=== PATIENT | female | born 1990 | race Two or more races ===

== ENCOUNTER 2025-04-25 06:21 | Observation (INO) | payer MEDICAID, SELFPAY ==
[2025-04-25] VITALS (160 sets, daily range): BP systolic 116–136; BP diastolic 58–90; PULSE 90–122; TEMP 36.7–36.8; O2SAT 84–99; BMI 34.2
--- NOTE | 2025-04-25 06:45 | XR_ITS ---
Examination: Complete OB ultrasound greater than 14 weeks Date and time of exam: April 25, 2025 0729 hours INDICATIONS: Vaginal bleeding beginning today Findings: Viable intrauterine single fetus with single amniotic sac presentation transverse head maternal left Cardiac motion 129 BPM Placenta posterior grade 2 venous lakes no abruption Umbilical cord insertion seen Amniotic fluid index 14.2 cm Cervix 4.1 cm closed Ovaries obscured by bowel gas. Composite estimated gestational age based on BPD, head circumference, abdominal circumference, femur length is 28 weeks 5 days Estimated weight 124.5 g. Survey of intracranial anatomy, spinal anatomy, abdominal anatomy, four-chamber heart performed with no abnormalities identified. Impression: Viable intrauterine gestation transverse presentation Placenta posterior, 1 cm from the cervix No placental abruption.
[2025-04-25] MEDS: BETAMET ACET/BETAMET NA PH (Celestone) 6 MG/ML VIAL 12 MG IM (07:06)
[2025-04-25 07:11] LABS: Basophils % (Auto) 0 % (0-2.5); Eosinophils # (Auto) 0.1 Thou/mm3 (0.0-0.5); Eosinophils % (Auto) 1 % (0-10); Hemoglobin 10.4 g/dL (12.0-16.0); Immature Granulocytes % (Auto) 2 % (0-0); Immature Granulocytes Auto 0.18 Thou/mm3 (0.00-0.00); Lymphocytes # (Auto) 2.2 Thou/mm3 (1.0-4.8); Lymphocytes % (Auto) 19 % (10-50); Mean Corpuscular HGB Conc 33.5 g/dl (31.0-37.0); Mean Corpuscular Hemoglobin 26.7 pg (25.0-35.0); Mean Corpuscular Volume 80 fL (80-100); Monocytes # (Auto) 0.8 Thou/mm3 (0.0-0.8); Monocytes % (Auto) 7 % (0-12); Neutrophils # (Auto) 7.9 Thou/mm3 (1.8-7.7); Neutrophils % (Auto) 71 % (37-80); Nucleated Red Blood Cell # 0.02 Thou/mm3 (0.00-0.00); Nucleated Red Blood Cell % 0 /100 WBC (0); Platelet Count 246 Thou/mm3 (140-440); RDW Standard Deviation 42.3 fL (36.4-46.3); White Blood Count 11.2 Thou/mm3 (3.6-11.0)
[2025-04-25 07:22] LABS: Partial Thromboplastin Time 28.1 Seconds (22.0-36.0); Prothrombin Time 10.6 Seconds (9.0-12.2)
--- NOTE | 2025-04-25 07:48 | ESPR_ITS ---
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 The bleeding was significant enough to run down her legs. She notes no ctx, no loss of fluid. No abdominal pain. Normal movement. Current : She has had regular OB care with her OBGYN in [place]. She has had spotting intermittently throughout . She was admitted in [place] approx 1 month ago for severe abdominal pain. Was diagnosed with UTI and trichomonas, she and partner treated. Hasn't had a test of cure for trichomonas yet. Previous pregnancies: History of sections x3 First delivery complicated by significant hemorrhage requiring blood transfusion. She was told at time of last that she should consider not getting again since she had considerable scarring ROS negative other than what was described above. Vitals wnl, afebrile General: well developed, well nourished, no acute distress, conversant Cardiac: normal heart rate Lungs: breathing without distress Abdomen: soft, gravid, non-tender, no rebound or guarding Extremities: no edema of BLE SSE: scant blood in vaginal vault, no active bleeding, cervix visually closed/thick/high. 2-3cm non-friable appearing cervical polyp SCE: cl/th/h FHRT reassuring for gestational age with +accels, no decels, mod hussain Trego: no ctx pattern, occasional irritability that resolves Labs: Hgb 10.4 Plt 246 PT 10.6 INR 1 PTT 28.1 fibrinogen 454 Radiology: ultrasound: Examination: Complete OB ultrasound greater than 14 weeks Date and time of exam: April 25, 2025 0729 hours INDICATIONS: Vaginal bleeding beginning today Findings: Viable intrauterine single fetus with single amniotic sac presentation transverse head maternal left Cardiac motion 129 BPM Placenta posterior grade 2 venous lakes no abruption Umbilical cord insertion seen Amniotic fluid index 14.2 cm Cervix 4.1 cm closed Ovaries obscured by bowel gas. Composite estimated gestational age based on BPD, head circumference, abdominal circumference, femur length is 28 weeks 5 days Estimated weight 124.5 g. Survey of intracranial anatomy, spinal anatomy, abdominal anatomy, four-chamber heart performed with no abnormalities identified. Impression: Viable intrauterine gestation transverse presentation Placenta posterior, 1 cm from the cervix No placental abruption. Assessment: Kisha is a 34yo with SIUP at 28+wk with painless vaginal bleeding episode, no evidence of placental abruption or pre-term labor. Cervix visually closed thick high and SCE cl/th/high. Cervical length 4.1cm. There is a non-friable appearing cervical polyp, 2-3cm in size. No ctx pattern. Reassuring status. Vitals wnl, benign exam. Ultrasound shows posterior low lying placenta (1cm from cervix) and venous lakes. I spoke with Radiologist who stated venous lakes are very small, largest is 1.2cm and no concern for abruption. Observed for 12 hours on L&D with complete cessation of bleeding and no recurrence. Plan: -Return to L&D tomorrow 04/26 for 2nd dose of betamethasone and NST -Vaginitis swab obtained for trichomonas test of cure, pending -Follow up with OBGYN within 1 week as scheduled -Will need repeat ultrasound to follow low lying placenta which we discussed -Discussed complete pelvic rest- no intercourse, no orgasm until cleared by follow up ultrasound. -Note given for 1 week off of work, discussed no vigorous activity -Return precautions: return of vaginal bleeding, loss of fluid, contractions, abdominal pain, decreased movement. Morena Latham MD
[2025-04-25] MEDS: RINGERS LACTATED 1000 ML 1,000 ML 999 ML IV (09:03)
[2025-04-25 09:07] LABS: Fibrinogen 454 mg/dL (175-375)
[2025-04-25] MEDS: ACETAMINOPHEN 500 MG TABLET 1000 MG PO (10:15)
[2025-04-26 16:29] LABS: BVAG Candida Positive (Negative); Bacterial Vaginosis Markers Negative (Negative); Candida glabrata Negative (Negative); Candida krusei PCR Negative (Negative); Trichomonas Negative (Negative)
== END 2025-04-25 19:00 | disposition home or self-care (01) ==
PROVIDERS: Admitting Provider Obstetrics & Gynecology; Visit Provider Obstetrics & Gynecology
DX: O46.93 Antepartum hemorrhage, unspecified, third trimester (principal); Z3A.28 28 weeks gestation of pregnancy; O34.43 Maternal care for other abnormalities of cervix, third trimester; N84.1 Polyp of cervix uteri
CPT/HCPCS: 36415; 59025; 59899; 76805; 81514; 85025; 85384; 85610; 85730; 86850; 86900; 86901; 96372; J0702; J7120; A9270

== ENCOUNTER 2025-04-26 06:30 | Outpatient (CLI) | payer MEDICAID, SELFPAY ==
[2025-04-26 07:05] VITALS: PULSE 84; O2SAT 98
[2025-04-26 07:08] VITALS: BMI 31.1
[2025-04-26 07:09] VITALS: BP 110/59; PULSE 83; RESP 18; RESP 98; TEMP 37.3
[2025-04-26 07:10] VITALS: PULSE 90; O2SAT 97
[2025-04-26] MEDS: BETAMET ACET/BETAMET NA PH (Celestone) 6 MG/ML VIAL 12 MG IM (07:10)
[2025-04-26 07:15] VITALS: PULSE 98; O2SAT 98
[2025-04-26 07:20] VITALS: PULSE 92; O2SAT 97
== END 2025-04-26 07:24 | disposition home or self-care (01) ==
LOC: S4S1 06:42 → S4SX 07:03
PROVIDERS: Referring Provider Obstetrics & Gynecology; Visit Provider Obstetrics & Gynecology
DX: Z34.83 Encounter for supervision of other normal pregnancy, third trimester (principal); Z36.9 Encounter for antenatal screening, unspecified; Z3A.28 28 weeks gestation of pregnancy
CPT/HCPCS: 59025; 96372; J0702

== ENCOUNTER 2025-08-24 13:59 | Emergency (ER) | payer MEDICAID, SELFPAY ==
[2025-08-24 14:00] VITALS: BMI 32.4
[2025-08-24 14:28] VITALS: BP 118/76; PULSE 80; RESP 18; TEMP 36.6; O2SAT 99
--- NOTE | 2025-08-24 14:34 | XR_ITS ---
Examination: CT abdomen with intravenous contrast CT pelvis with intravenous contrast 2-D coronal reconstructions 2-D sagittal reconstructions Date and time of exam: August 24, 2025, 1827 hours, comparison May 11, 2022 INDICATIONS: Umbilical pain area 3 days.. CTDI: vol (mGy) 7.99 DLP: (mGycm) 468 Technique: Multiple axial sections of the abdomen and pelvis have been obtained. 64 slice high-resolution scanner used. 3 mm axial sections have been obtained, post intravenous injection of 60 cc [id number]-370 2-D sagittal, coronal reconstructions obtained. Low dose protocols were performed. One or more of the following dose reduction techniques were used; automated exposure control, adjustment of the mA and/or KV according to patient size, use of iterative reconstruction technique. Findings: No focal liver or splenic lesions Contracted gallbladder No pancreatic or adrenal mass No renal or ureteral calculi, no hydronephrosis Aorta normal size 12 mm fat-containing umbilical hernia Absent appendix No bowel obstruction Anteverted uterus Cystic septated right adnexal mass, axial image 173, measuring 5.4 cm Inflammatory change anterior to the urinary bladder which extends through the pelvic wall with pelvic wall abscess, axial image 195, sagittal image 92, measuring 3.3 x 1.3 x 4.3 cm IMPRESSION: Recommend pelvic sonography to assess septated right adnexal mass Inflammatory infectious change anterior to the urinary bladder which extends through the anterior pelvic wall with pelvic wall abscess 3.3 x 1.3 x 4.3 cm
--- NOTE | 2025-08-24 14:35 | PD.EDRME ---
Rapid Medical Screening Exam [facility] Arrival date/time: 08/24/25 13:59 34-year-old female with no known medical history presents to the emergency room with a chief complaint of drainage and tenderness to her mid pelvic area. Patient recently had a done 2 months ago. Patient states that after her she developed an abscess to the same area which needed to be drained I have greeted and performed a focused initial assessment of this patient. A comprehensive ED assessment and evaluation of the patient, analysis of all test results, and completion of the medical decision making process will be conducted by additional ED providers. Chief Complaint: Wound Recheck / Suture Removal Time Seen by Provider: 08/24/25 14:24 Vital signs: Vital Signs Temperature 97.8 F 08/24/25 14:28 Pulse Rate 80 08/24/25 14:28 Respiratory Rate 18 08/24/25 14:28 Blood Pressure 118/76 08/24/25 14:28 Pulse Oximetry (%) 99 08/24/25 14:28 Oxygen Delivery Method Room Air 08/24/25 14:28 Vital signs reviewed by provider: Yes Exam: 7 out of 10 mid abdominal pain, white foul-smelling drainage from the incision site Strong and regular rhythm clear bilateral lung sounds Clinical Impression: Cellulitis/abscess/incision dehiscence
[2025-08-24 15:20] LABS: Basophils # (Auto) 0.0 Thou/mm3 (0.0-0.2); Basophils % (Auto) 1 % (0-2.5); Eosinophils # (Auto) 0.2 Thou/mm3 (0.0-0.5); Eosinophils % (Auto) 2 % (0-10); Hematocrit 37.9 % (36.0-46.0); Hemoglobin 12.0 g/dL (12.0-16.0); Immature Granulocytes Auto 0.02 Thou/mm3 (0.00-0.00); Lymphocytes # (Auto) 1.8 Thou/mm3 (1.0-4.8); Lymphocytes % (Auto) 24 % (10-50); Mean Corpuscular HGB Conc 31.7 g/dl (31.0-37.0); Mean Corpuscular Hemoglobin 26.1 pg (25.0-35.0); Mean Corpuscular Volume 82 fL (80-100); Monocytes # (Auto) 0.5 Thou/mm3 (0.0-0.8); Monocytes % (Auto) 6 % (0-12); Neutrophils # (Auto) 4.8 Thou/mm3 (1.8-7.7); Neutrophils % (Auto) 66 % (37-80); Nucleated Red Blood Cell # 0.00 Thou/mm3 (0.00-0.00); Nucleated Red Blood Cell % 0 /100 WBC (0); Platelet Count 261 Thou/mm3 (140-440); RDW Standard Deviation 62.9 fL (36.4-46.3); Red Blood Count 4.60 Miln/mm3 (4.00-5.20); White Blood Count 7.2 Thou/mm3 (3.6-11.0)
[2025-08-24 15:47] LABS: Alanine Aminotransferase 11 U/L (10-49); Albumin, Serum 4.6 gm/dL (3.5-5.0); Albumin/Globulin Ratio 1.9 (1.2-2.2); Alkaline Phosphatase 88 U/L (46-116); Anion Gap 8 (7-16); Aspartate Amino Transferase 14 U/L (0-34); BUN/Creatinine Ratio 22 Ratio (12-20); Bilirubin,Total 0.4 mg/dL (0.3-1.2); Blood Urea Nitrogen 13 mg/dL (9-23); Calcium 9.2 mg/dL (8.3-10.6); Calcium (Corrected) 9.2 mg/dL (8.5-10.1); Carbon Dioxide 28.8 mMol/L (20.0-31.0); Chloride 105 mMol/L (98-107); Creatinine (Component) 0.6 mg/dL (0.6-1.3); Estimated Creatinine Clearance 118.6 mL/min (>60); Globulin 2.4 gm/dL (2.3-3.5); Glucose 115 mg/dL (74-106); Lipase 50 U/L (12-53); Osmolality,Calculated 284 (275-295); Potassium 4.4 mMol/L (3.4-5.1); Sodium 142 mMol/L (136-145); Total Protein 7.0 gm/dL (5.7-8.2); eGFR > 60 See Note
[2025-08-24 15:53] LABS: Collection Type, Urine Clean Catch
[2025-08-24 16:04] LABS: Bilirubin,Urine Negative (Negative); Blood,Urine 3+ (Negative); Budding Yeast,Urine Present; Color,Urine Yellow (Lt Yel-Yel); Glucose, Urine Negative (Negative); Ketones,Urine Negative (Negative); Leukocyte Esterase,Urine Positive (Negative); Nitrite,Urine Negative (Negative); PH,Urine 6.0 (5.0-7.0); Protein,Urine 1+ (Neg - Trace); RBC,Urine 136 /hpf (0-3); Specific Gravity,Urine 1.032 (1.001-1.035); Squamous Epithelial Cell,Urine 105 /hpf (0-5); Urobilinogen,Urine Negative mg/dL (0.0-1.0); WBC,Urine 186 /hpf (0-5)
[2025-08-24 16:07] LABS: Clarity,Urine Cloudy (Clear/Hazy)
[2025-08-24 17:09] LABS: HCG Qualitative,Urine Negative
--- NOTE | 2025-08-24 20:14 | EDNOTE_ITS ---
ED Wound/Laceration-RME/HPI General Chief Complaint: Wound Recheck / Suture Removal Stated Complaint: SWOLLEN & LEAKY INCISION 2 MONTHS Time Seen by Provider: 08/24/25 14:24 Source: patient Arrival date/time: 08/24/25 13:59 Mode of arrival: ambulatory Limitations: no limitations RME / HPI RME / HPI narrative: DR. Veronica MTZ HPI: 34-year-old female presents emergency department after tenderness and drainage at her site for the last few days. Patient is status post 2 months ago July at [facility]. This is #4. The patient then had an abdominal abscess 3 weeks status post her . This required drainage and hospitalization. Patient states at that time the abscess was 15 cm and on discharge it was 5 cm.) The drainage is foul-smelling and yellow in color. Patient denies fevers, back pain, palpitations, or syncope. No cough, runny nose, and otherwise having no vaginal discharge. RME 08/24/25 13:59 34-year-old female with no known medical history presents to the emergency room with a chief complaint of drainage and tenderness to her mid pelvic area. Patient recently had a done 2 months ago. Patient states that after her she developed an abscess to the same area which needed to be drained I have greeted and performed a focused initial assessment of this patient. A comprehensive ED assessment and evaluation of the patient, analysis of all test results, and completion of the medical decision making process will be conducted by additional ED providers. Exam: 7 out of 10 mid abdominal pain, white foul-smelling drainage from the incision site Strong and regular rhythm clear bilateral lung sounds Impression: Cellulitis/abscess/incision dehiscence Related Data Previous Rx's ?Medication ?Instructions ?Recorded levofloxacin 750 mg tablet 750 mg PO QDAY #7 tabs 05/01 01/20 doxycycline hyclate 100 mg tablet 100 mg PO BID #20 ta bs 08/24/25 Allergies Allergy/AdvReac Type Severity Reaction Status Date / Time morphine Allergy Severe Vomiting Verified 08/24/25 14:04 diphenhydramine AdvReac Severe Hives Verified 08/24/25 14:04 Review of Systems Review of Systems Systems Reviewed: All systems reviewed, normal except as documented Constitutional Constitutional: Reports system reviewed and no additional complaints, except as documented and Denies fever(s) Eyes Eyes: Reports system reviewed and no additional complaints, except as documented ENT Ears, Nose, Mouth, and Throat: Reports system reviewed and no additional complaints, except as documented Cardiovascular Cardiovascular: Reports system reviewed and no additional complaints, except as documented, Denies chest pain and Reports dyspnea Respiratory Respiratory: Reports system reviewed and no additional complaints, except as documented, Reports dyspnea and Denies wheezing Musculoskeletal Musculoskeletal: Reports system reviewed and no additional complaints, except as documented, Denies abnormal gait and Denies arthralgias Integumentary/Breasts Skin/Breast: Reports system reviewed and no additional complaints, except as documented and Denies rash Neurologic Neurologic: Reports system reviewed and no additional complaints, except as documented and Denies abnormal gait Psychiatric Psychiatric: Reports system reviewed and no additional complaints, except as documented Allergic/Immunologic Allergic/Immunologic: Denies wheezing ED Exam General Limitations: Present no limitations General appearance: Present alert and in no apparent distress Head Head exam: Present atraumatic Eye Eye exam: Present normal appearance, PERRL and EOMI ENT ENT exam: Present normal exam, normal oropharynx and mucous membranes moist Neck Neck exam: Present normal inspection, full ROM and trachea midline Chest Chest inspection: Present normal inspection and symmetric chest wall rise Respiratory Respiratory exam: Present normal lung sounds bilaterally Cardiovascular Cardiovascular exam: Present regular rate, normal rhythm and normal heart sounds Abdominal Exam Abdominal exam: Present scar (Scar over the lower abdominal area, yellow discharge noted with palpation. Tenderness palpation below the scar area. No rebound. ); Absent distention Neurological Exam Neurological exam: Present alert, oriented X3 and CN II-XII intact Psychiatric Psychiatric exam: Present normal affect and normal mood Course Course Course Narrative: 2100 patient to ultrasound US Quality Measures none Orders Category Date Time Status CT Screening NOW Care 08/24/25 14:[address] abdomen pelvis w con Stat Exams 08/24/25 14:34 Completed US pelvic complete Stat Exams 08/24/25 20:17 Completed CBC Stat Lab 08/24/25 14:58 Completed CMP [Comprehensive Metabolic Panel] Stat Lab 08/24/25 14:58 Completed HCG Qualitative,Urine Stat Lab 08/24/25 15:35 Completed Lipase Stat Lab 08/24/25 14:58 Completed UA [Urinalysis] Stat Lab 08/24/25 15:35 Completed Urine Culture Stat Lab 08/24/25 15:35 Received Wound Culture and Gram Stain Stat Lab 08/24/25 23:22 Ordered Doxycycline [Vibramycin] Med 08/24/25 23:39 Once 100 mg PO X1 ONE Piper/Tazo 3.375 gm Premix [Zosyn] Med 08/24/25 23:22 Discontinued 3.375 gm in 50 ml IV X1 cefTRIAXone [Rocephin] 1,000 mg Med 08/24/25 23:39 Ordered SODIUM CHLORIDE 0.9% (Popper) [Ns 0.9% (P)] 50 ml IV X1 Reevaluation(s) Reevaluation #1: Patient no acute distress lying on the stretcher. She is moved 6 from to a bed for examination. Time: 20:45 Vital Signs Vital signs: Vital Signs Temperature 97.8 F 08/24/25 14:28 Pulse Rate 80 08/24/25 14:28 Respiratory Rate 18 08/24/25 14:28 Blood Pressure 118/76 08/24/25 14:28 Pulse Oximetry (%) 99 08/24/25 14:28 Oxygen Delivery Method Room Air 08/24/25 14:28 Wound / Laceration MDM Narrative MDM Narrative:: 34-year-old female status post July 03, 2025 months ago coming in with recurrent abscess. The patient is afebrile and otherwise is complaining of foul-smelling discharge from the wound. Differential diagnosis includes recurrent abscess, sepsis, cellulitis, extension of the abscess to other parts of the bladder area. Patient is reviewed and examined by me. Vital signs are reviewed. Heart rate is 118/76. Pulse is 80. Otherwise white count is 7.2, hemoglobin 12/37 and normal. Platelets are 261 and normal. Chemistry has no electrolyte abnormality. Glucose is 115. Urinalysis shows 1+ protein, 3+ blood, RBCs 136, white BCs 186, squamous 105. Yeast budding. This is an abnormal urine. Assessment and plan: Patient with obvious yellow discharge from the wound, pain and tenderness below the scar. That the other abscess that she had previously was above the scar and she feels like it is moved from from above the scar to now below the scar. This corresponds to what is seen on the pelvic ultrasound in which she shows a 5 x 4 x 2 cm abscess anterior to the bladder. Antibiotics ordered. The patient does not have elevated white count, does not appear septic. Does have a draining wound. At this time I had a long talk with Dr. Barajas. She feels the patient can be discharged home. She will discuss the antibiotic choice with her tomorrow and if needed will switch antibiotic in the next 24 to 72 hours if needed. A wound culture has been sent. Patient reports that when she left the hospital that her abscess went from a size of 15 down to 5 cm and today is about 5.5 cm which is about average when she left the hospital. So at this time Dr. Barajas feels the patient can be discharged home. 2311:[facility] ASSESSMENT Dr. Mclain is paged however she is in the OR and states that she will call back when she is completed with the surgery. 2315: Seen by Dr. Barajas here in the emergency department [facility]ESSMENT. She feels the patient can be discharged and will follow-up the patient next week in the office. Wound culture will be sent. Patient will follow-up with Dr. Barajas in the next 1 week. Return precautions are given and understood. Patient data External records reviewed:: [facility] previous records (Patient was admitted by Dr. Zavala 04/25/2025 when she was 28 weeks for possible early delivery but was discharged home.) Clinical information provided by:: patient Social determinants that could affect healthcare access:: none Patient has the following chronic illnesses:: Previous abscesses secondary to her in the past. How is presenting disease/condition affected by chronic disease/condition?: exacerbated by Evaluation data The following diagnostics were reviewed and interpreted by me:: lab results Lab and/or radiology exams considered but not ordered:: None Interpretation Summary: Otherwise white count is 7.2, hemoglobin 12/37 and normal. Platelets are 261 and normal. Chemistry has no electrolyte abnormality. Glucose is 115. Urinalysis shows 1+ protein, 3+ blood, RBCs 136, white BCs 186, squamous 105. Yeast budding. This is an abnormal urine. CT Findings: No focal liver or splenic lesions Contracted gallbladder No pancreatic or adrenal mass No renal or ureteral calculi, no hydronephrosis Aorta normal size 12 mm fat-containing umbilical hernia Absent appendix No bowel obstruction Anteverted uterus Cystic septated right adnexal mass, axial image 173, measuring 5.4 cm Inflammatory change anterior to the urinary bladder which extends through the pelvic wall with pelvic wall abscess, axial image 195, sagittal image 92, measuring 3.3 x 1.3 x 4.3 cm IMPRESSION: Recommend pelvic sonography to assess septated right adnexal mass Inflammatory infectious change anterior to the urinary bladder which extends through the anterior pelvic wall with pelvic wall abscess 3.3 x 1.3 x 4.3 cm Pelvic ultrasound IMPRESSION: Findings most consistent with abscess in the anterior pelvic wall, 5.5 x 2.6 x 4.0 cm Medications / Prescriptions Medications or Prescriptions considered but not ordered:: None Medication administrations:: Medication Administration History Doxycycline Hyclate (Doxycycline 100 Mg Tablet) 100 mg PO X1 ONE Stop: 08/24/25 23:40 Ceftriaxone Sodium 1,000 mg/ (Sodium Chloride) 50 mls @ 100 mls/hr IV X1 ONE Stop: 08/25/25 00:08 Discontinued Medications Piperacillin/Tazobactam/Dextrose (Zosyn) 3.375 gm in 50 mls @ 100 mls/hr IV X1 ONE; Protocol Stop: 08/24/25 23:51 See nurses notes Consultations Consultation(s) initiated? (list below): Yes Consultation #1 (Physician, Specialty, Details): Dr. Barajas, [facility]ESSMENT on-call. She will come and evaluate the patient Emergency Department. Time: 22:00 Diagnosis Wound Differential Diagnosis: other (See MDM) Most likely diagnosis given after review of the tests above:: Postop infection. Admission Indicated Admission indicated?: not indicated Admission Request Was there a request for admission?: No Disposition Plan Disposition Plan: Discharge Discharge Attestation Discharge Attestation: The patient and all family members were given an opportunity to ask questions and understood the discharge instructions. Discharge instructions specifically effects, indications for sooner follow up or return to the emergency department, and the expected course of current diagnosis. Patient condition: Stable Discharge Plan Plan Patient Disposition: HOME (Self Care) Patient condition on transfer: Stable Prescriptions/Referrals Prescriptions/Med Rec: New doxycycline hyclate 100 mg tablet 100 mg PO BID Qty: 20 0RF No Action levofloxacin 750 mg tablet 750 mg PO QDAY Qty: 7 0RF Referrals: Matias Mckeon MD [Primary Care Provider, Family Practice] - In 1 week Problem List Clinical Impression: Complication, postoperative infection, Recurrent abdominal wound abscess Patient/Caregiver Discharge Instructions Education Materials: ED Wound Check (Infection) Print Language: German Stand Alone Forms: [facility] Award Info., Patient Portal Info Letter
--- NOTE | 2025-08-24 20:17 | XR_ITS ---
Examination: Pelvic ultrasound, transabdominal, complete Technique: Transabdominal ultrasound of the pelvis performed using grayscale imaging Date and time of exam: August 24, 2025, 2058 hours INDICATIONS: July 03, 2025, pelvic pain FINDINGS: Uterus 12.1 cm Mass in the pelvic wall anterior to the urinary bladder 5.5 x 2.6 x 4.0 cm most consistent with abscess Right ovary 5.2 cm right ovarian cyst 3 cm Left ovary 3.4 cm arterial flow IMPRESSION: Findings most consistent with abscess in the anterior pelvic wall, 5.5 x 2.6 x 4.0 cm
[2025-08-24 21:34] VITALS: BP 125/91; PULSE 76; RESP 16; TEMP 37; O2SAT 99
[2025-08-25] MEDS: cefTRIAXone 1,000 MG in SODIUM CHLORIDE 0.9% (Popper) 50 ML 100 MG IV (00:38)
[2025-08-25] MEDS: DOXYCYCLINE 100 MG TABLET PO (00:38)
--- NOTE | 2025-08-25 00:46 | PD.GYNCONS ---
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 Krys Goldberg Primary Care Provider: Matias Mckeon MD Consult Narrative Reason for consult: other (Possible wound abscess) History of present illness: The patient is a 34-year-old G4 now P4004 status post scheduled repeat in [place] 07/03/2025. Patient states she had an uncomplicated postop course. She is unsure of who performed her section. She was readmitted 07/29/2025 again to [facility] for 7 days for a large wound abscess. Patient stated it was around 15 cm and they did some type of drainage through her abdomen and put her on antibiotics. She is not sure which antibiotic she was on. She has not been following consistently with anybody. She was following with her primary care Dr. Washburn but the has been out of town and has been rescheduling her appointments. She stated today she woke up today and had a large amount of drainage from her incision and it had a foul odor. She presented to our emergency room for further evaluation. Of note patient denied fevers or chills. She denied heavy vaginal bleeding. She denied nausea vomiting or diarrhea she denied foul vaginal odor. She is bottlefeeding exclusively. She stopped the antibiotics prescribed by the [facility] doctors about 4 days ago. She is unsure what pill she was on but it was 2 bottles of pills. She is diabetic but states her blood sugar is well-controlled she is not sure what her hemoglobin A1c is. I have no records on evaluation of the patient in the emergency room. Of note patient's hemoglobin is 12. She has no elevated white count. Her white count is 7.2 with 66% neutrophils. Her blood pressure is 132/78. She is afebrile. The CT scan reveals a 3.3 x 1.3 x 4.3 cm abscess between her skin and above her bladder. An ultrasound confirms this. cc:: cc: Review of Systems Review of Systems Narrative Review of Systems: No fevers, no chills. No heavy vaginal bleeding. No foul vaginal discharge. No vomiting. No nausea. Patient does report a cloudy puslike yellow discharge coming from her incision with an odor. She stated this started draining today and actually her incision feels better after this fluid drained. 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 She is cooperative. She is a good historian. Constitutional Constitutional: no acute distress and obese Comments: Abdomen soft nontender nondistended . No rebound no guarding she has 2 pinpoint areas on her Pfannenstiel skin incision that are draining purulent material. There is no foul odor. She has some erythema on her mons pubis and some induration. Overall her incision is healing well. 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 Labs 08/24/25 14:58 08/24/25 14:58 Labs: Short CBC 08/24/25 Range/Units 14:58 WBC 7.2 (3.6-11.0) Thou/mm3 Hgb 12.0 (12.0-16.0) g/dL Hct 37.9 (36.0-46.0) % Plt Count 261 (140-440) Thou/mm3 BMP 08/24/25 14:58 Sodium 142 Potassium 4.4 Chloride 105 Carbon Dioxide 28.8 BUN 13 Creatinine 0.6 Glucose 115 H Calcium 9.2 Liver Function 08/24/25 Range/Units 14:58 Total Bilirubin 0.4 (0.3-1.2) mg/dL AST 14 (0-34) U/L ALT 11 (10-49) U/L Alkaline Phosphatase 88 (46-116) U/L Albumin 4.6 (3.5-5.0) gm/dL Urine 08/24/25 Range/Units 15:35 Urine Color Yellow (Lt Yel-Yel) Urine Clarity Cloudy A (Clear/Hazy) Urine pH 6.0 (5.0-7.0) Ur Specific Eros 1.032 (1.001-1.035) Urine Protein 1+ A (Neg - Trace) Urine Glucose (UA) Negative (Negative) Assessment and Plan Assessment and plan (1) Recurrent abdominal wound abscess: Status: Acute Assessment and plan: Patient is postop week approximately 6 from a scheduled elective repeat section 07-26 performed in [place]. No op report is available. She apparently got readmitted 07/29/25 for some type of abscess patient stated it was large and they drained this and she stayed in the hospital week and was on antibiotics for about 3 weeks afterwards. She stopped these a couple days ago. It appears she now has a small abscess draining. Patient states is actually smaller than before and smaller than this morning. Reasonable to send her home on a dose of Rocephin then p.o. doxycycline 100 twice daily for 10 days. I will run this by the infectious disease specialist and see if the antibiotics need to be changed. Patient will follow-up in our clinic in 1 week. Additional Assessment & Plan Additional Plan: Please have her call our clinic for follow up next week.
[2025-08-25 00:50] VITALS: BP 128/85; PULSE 71; RESP 18; O2SAT 99
== END 2025-08-25 00:53 | disposition home or self-care (01) ==
PROVIDERS: Nurse Practitioner Family; Emergency Provider Emergency Medicine; PCP Family Medicine
DX: L02.211 Cutaneous abscess of abdominal wall (principal)
CPT/HCPCS: 36415; 74177; 76856; 80053; 81001; 81025; 83690; 85025; 87070; 87077; 87086; 87186; 87205; 99283; A4649; J0696; J7050; Q9967; A9270